=== PATIENT | female | born 1975 | race Caucasian/White ===

== ENCOUNTER 2020-12-18 07:09 | Day surgery (SDC) | payer OTHER ==
[~2020-12-18 07:09] MED LIST: ASTRINGYN 8 GM TP ONE; XYLOCAINE 1%/Epi 1:100000 MDV 20 ML ONE
[2020-12-18] MEDS ORDERED: Lactated Ringers 1,000 ML IV SCH (07:30)
[2020-12-18] MEDS ORDERED: Versed 2 MG/2 ML Injection ONE (08:55)
[2020-12-18] MEDS ORDERED: SUBLIMAZE 100 MCG/2 ML ONE ×2 (08:55→09:19)
[2020-12-18] MEDS ORDERED: Decadron 4 MG INJ ONE (08:57)
[2020-12-18] MEDS ORDERED: Zofran 4 MG/2 ML VIAL ONE (08:57)
[2020-12-18] MEDS ORDERED: TORAdol 30 mg Injection ONE (08:57)
[2020-12-18] MEDS ORDERED: DIPRIVAN 200 MG/20 ML IV ONE ×2 (08:57→09:39)
[2020-12-18 10:24] VITALS: BP 140/83; PULSE 86; O2SAT 94
--- NOTE | 2020-12-19 13:50 | OP ---
SURGERY DATE/TIME: 12/18/2020 0907 PREOPERATIVE DIAGNOSIS: 1. SEVERE CERVICAL DYSPLASIA. POSTOPERATIVE DIAGNOSIS: 1. SEVERE CERVICAL DYSPLASIA. PROCEDURE: 1. Loop electrosurgical excision procedure. SURGEON: Dr. Dick Odom. KEY RINGER: cnc maintenance technicianShlomo. ANESTHESIA: General. ESTIMATED BLOOD LOSS: Minimal. COMPLICATIONS: None. FINDINGS: The risks, benefits, indications, and alternatives of the procedure were reviewed with the patient prior to the procedure. Patient understood the risks of infection, bleeding, uterine perforation, pelvic infection, anorgasmia, and thromboembolic event associated with this procedure. However, desires to have this procedure as a possible means to alleviate her current medical condition. DESCRIPTION OF PROCEDURE: At this point, the patient was taken to the operating room, given general sedation, placed in the dorsal lithotomy position, and prepped and draped in the usual sterile fashion. A curved speculum was then placed in the patient's vagina and the cervix was then injected circumferentially with 1% Lidocaine with epinephrine. Approximately 5 cc of solution was used. At this point, the looped instrument was then used and was used to excise the ectocervical region of the cervix where end depth of 7-8 mm ectocervical tissue was taken in a left to right motion and was done so without complication. An additional 2-3 mm of the endocervical tissue was excised in a similar fashion with a right to left motion and was done so without complication. Hemostasis was obtained by placing the loop environmental aide ball on the surface of the cervix and there was no bleeding noted after this procedure. At this point, Monsel solution was placed on the surface. All instruments were then removed from the patient's vaginal region. The patient was then taken out of the dorsal lithotomy position and was taken out of anesthesia and was then taken to the recovery room in stable condition.
== END 2020-12-18 10:28 | disposition home or self-care (01) ==
LOC: SDC 07:09
PROVIDERS: ATTEND Obstetrics & Gynecology
DX: D06.9 Carcinoma in situ of cervix, unspecified (principal)
CPT/HCPCS: 57460; 84703; 88305; J1100; J1885; J2250; J2405; J2704; J3010; A9270-GY